=== PATIENT | female | born 1970 | race Caucasian/White ===

== ENCOUNTER → 2016-08-10 | Outpatient (CLI) | payer BC ==
--- NOTE | 2016-08-10 11:01 | DX ---
Bilateral Feet - Six Views Total August 10, 2016 Indication: Bilateral hallux valgus deformity. Preoperative evaluation for bilateral bunionectomies. Technique: Weight-bearing AP, oblique, and lateral views. Comparison: None. Findings: The bones are normally mineralized. Bilateral primus varus, is worse right than left, with 24 degrees of angulation on the right and 22 degrees of angulation on the left. Bilateral moderate andrews llux valgus deformities, worse right than left, with 45 degrees of angulation on the right and 36 deg jose of angulation on the left. In addition to the hallux valgus deformity on the right, there is mil d external rotation of the proximal phalanx first toe. Mild osteoarthritis of the first metatarsophal angeal joint is evidenced by lateral joint space narrowing and subchondral sclerosis. Small marginal erosions are present along the right first metatarsal head. Minimal benign smooth periosteal reaction along the medial diaphyseal shaft of the right second metatarsal may be sequela from remote fracture or stress response. No evidence of acute fracture. 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
== END ==
LOC: CIMAGING 08:54
PROVIDERS: ATTEND Podiatrist Foot & Ankle Surgery
DX: Z01.818 Encounter for other preprocedural examination (principal); M20.11 Hallux valgus (acquired), right foot; M20.12 Hallux valgus (acquired), left foot; M19.071 Primary osteoarthritis, right ankle and foot; M19.072 Primary osteoarthritis, left ankle and foot
CPT/HCPCS: 73630-PO

== ENCOUNTER → 2016-08-22 | Outpatient (CLI) | payer BC ==
--- NOTE | 2016-08-22 17:35 | DX ---
Right Foot , Three History: Follow-up bunionectomy on August 18, 2016 COMPARISON: August 10, 2016 Findings: Overlying splint material obscures fine bony detail on the AP and oblique view. There is tr aumatic improvement of the patient's severe bunion deformity area and currently the first metatarsoph alangeal joint is straight and anatomic. There is metallic fixation of the I cuneiform first metatars al joint which is also in anatomic alignment and affixed with a compression plate and 2 separate obli que compression screws. The bunion has been resected. The first metatarsal-phalangeal joint and navic ular 1 cuneiform joint are normal. There is an old healed fracture of the midshaft of the second meta tarsal. Impression: Dramatic improvement in a now anatomic great toe.
== END ==
LOC: BMCIMAGING 13:21
PROVIDERS: ATTEND Podiatrist Foot & Ankle Surgery
DX: Z09 Encounter for follow-up examination after completed treatment for conditions other than malignant neoplasm (principal)

== ENCOUNTER → 2016-09-21 | Outpatient (CLI) | payer BC | LOC: BMCIMAGING 08:50 | PROVIDERS: ATTEND Podiatrist Foot & Ankle Surgery | DX: Z09 Encounter for follow-up examination after completed treatment for conditions other than malignant neoplasm (principal); Z98.890 Other specified postprocedural states ==

== ENCOUNTER → 2016-10-12 | Outpatient (CLI) | payer BC | LOC: CIMAGING 09:02 | PROVIDERS: ATTEND Podiatrist Foot & Ankle Surgery | DX: Z09 Encounter for follow-up examination after completed treatment for conditions other than malignant neoplasm (principal); Z98.890 Other specified postprocedural states; M79.89 Other specified soft tissue disorders | CPT/HCPCS: 73630-PO ==

== ENCOUNTER → 2016-11-16 | Outpatient (CLI) | payer BC | LOC: BMCIMAGING 08:46 | PROVIDERS: ATTEND Podiatrist Foot & Ankle Surgery | DX: Z09 Encounter for follow-up examination after completed treatment for conditions other than malignant neoplasm (principal); Z98.890 Other specified postprocedural states ==

== ENCOUNTER → 2018-08-29 | Outpatient (CLI) | payer BC | LOC: BMCIMAGING 08:25 | PROVIDERS: ATTEND Podiatrist Foot & Ankle Surgery | DX: Z09 Encounter for follow-up examination after completed treatment for conditions other than malignant neoplasm (principal); Z96.9 Presence of functional implant, unspecified ==

== ENCOUNTER → 2018-09-26 | Outpatient (CLI) | payer BC | LOC: BMCIMAGING 08:57 | PROVIDERS: ATTEND Podiatrist Foot & Ankle Surgery | DX: Z09 Encounter for follow-up examination after completed treatment for conditions other than malignant neoplasm (principal); Z98.890 Other specified postprocedural states ==

== ENCOUNTER → 2018-10-17 | Outpatient (CLI) | payer BC | LOC: BMCIMAGING 09:10 | PROVIDERS: ATTEND Podiatrist Foot & Ankle Surgery | DX: Z09 Encounter for follow-up examination after completed treatment for conditions other than malignant neoplasm (principal); Z98.1 Arthrodesis status ==

== ENCOUNTER → 2018-11-21 | Outpatient (CLI) | payer BC | LOC: BMCIMAGING 09:52 | PROVIDERS: ATTEND Podiatrist Foot & Ankle Surgery | DX: Z09 Encounter for follow-up examination after completed treatment for conditions other than malignant neoplasm (principal); Z98.890 Other specified postprocedural states ==